=== PATIENT | female | born 1955 | race Caucasian/White ===

== ENCOUNTER 2017-06-17 13:24 | Outpatient (CLI) ==
[2015-05-10 19:52] VITALS: BMI 17.9
[2017-06-17 13:42] LABS: BASOPHILS % (AUTO) 0.3 % (0.0-3.0); EOSINOPHILS # (AUTO) 0.1 K/ul (0.0-0.7); EOSINOPHILS % (AUTO) 0.8 % (0.0-7.0); HEMATOCRIT 34.5 % (37.0-47.0); HEMOGLOBIN 11.5 g/dl (12.0-16.0); IMMATURE GRANULOCYTE % (AUTO) 0.3 % (0.0-5.0); LYMPHOCYTES # (AUTO) 1.7 K/uL (0.60-3.4); LYMPHOCYTES % (AUTO) 13.9 (10.0-50.0); MEAN CORPUSCULAR HEMOGLOBIN 29.9 pg (27.0-31.0); MEAN CORPUSCULAR HGB CONC 33.3 (31.8-35.4); MEAN CORPUSCULAR VOLUME 89.6 fl (81.0-99.0); MONOCYTES # (AUTO) 0.9 K/uL (0.4-2.0); MONOCYTES % (AUTO) 7.4 (0-10); NEUTROPHILS # (AUTO) 9.2 K/ul (2.0-6.9); NEUTROPHILS % (AUTO) 77.3; PLATELET COUNT 296 10^3/uL (140-440); RED BLOOD COUNT 3.85 10^6/ul (4.20-5.40); WHITE BLOOD COUNT 11.89 K/ul (4.6-10.2)
[2017-06-17 14:20] LABS: ALBUMIN 3.5 g/dL (3.4-5.0); ALBUMIN/GLOBULIN RATIO 0.88; ANION GAP 14.5; BILIRUBIN,TOTAL 0.48 mg/dL (0.00-1.20); BUN/CREATININE RATIO 27.65; CALCIUM 9.7 mg/dL (8.2-10.2); CHOL/HDL RATIO 4.9 (4.5-5.5); CREATININE 0.94 mg/dL (0.60-1.30); POTASSIUM 3.5 mmol/L (3.5-5.10); TOTAL PROTEIN 7.5 g/dL (5.8-8.1)
[2017-06-17 15:18] LABS: VALPORIC ACID (DEPAKENE) 14.78 ug/mL (50.00-100.00)
== END 2017-06-17 13:25 | disposition home or self-care (01) ==
LOC: LAB 13:24
PROVIDERS: ATTEND Physician Assistant
DX: G40.909 Epilepsy, unspecified, not intractable, without status epilepticus (principal); G47.00 Insomnia, unspecified; E78.5 Hyperlipidemia, unspecified
CPT/HCPCS: 36415; 80053; 80061; 80164; 84436; 84443; 85025

== ENCOUNTER 2017-06-17 14:04 | Emergency (ER) ==
[2017-06-17 14:10] VITALS: BP 128/78; TEMP 96.8; BMI 14.8
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
--- NOTE | 2017-06-17 16:01 | DI ---
EXAM: Chest two view, frontal and lateral views. HISTORY: Cough. COMPARISON: None available. FINDINGS: Right-sided chest port is present from a subclavian approach with tip projecting over the cavoatrial junction. Heart size is normal. There is fullness along the left aspect of the aortic ar ch. No vascular congestion identified. A few small nodular densities are suggested in the perihilar regions. No pleural effusion or pneumothorax identified. Question prominent left anterior first ri b and. No acute fractures seen. Clips seen in the upper abdomen. IMPRESSION: 1. Prominent opacity along the left side of the aortic arch could be prominence of the aorta. Lymph adenopathy or mass not excluded. 2. Perihilar nodules possibly calcified granulomas. 3. Correlation with chest CT or follow-up radiographs recommended.
[2017-06-17 16:42] LABS: BILIRUBIN,URINE Negative (NEGATIVE); KETONES,URINE Negative (NEGATIVE); LEUKOCYTE ESTERASE ,URINE Negative (NEGATIVE); NITRITE,URINE Negative (NEGATIVE); PH,URINE 6.5 (5-9); PROTEIN,URINE 1+ (NEGATIVE); URINE, BLOOD Trace-intact (NEGATIVE)
[2017-06-17 16:44] LABS: COCAIN SCREEN,URINE NEGATIVE (NEGATIVE)
[2017-06-17 16:45] LABS: ADD URINE MICROSCOPIC YES
[2017-06-17 16:48] LABS: BACTERIA,URINE TRACE (NOT PRESENT)
== END 2017-06-17 17:23 | disposition home or self-care (01) ==
LOC: ED 14:04
DX: J18.9 Pneumonia, unspecified organism (principal); F79 Unspecified intellectual disabilities; R41.82 Altered mental status, unspecified; Z79.899 Other long term (current) drug therapy; G40.909 Epilepsy, unspecified, not intractable, without status epilepticus; G47.00 Insomnia, unspecified; E78.5 Hyperlipidemia, unspecified
CPT/HCPCS: 36415; 80053; 80061; 80164; 80306; 81001; 84436; 84443; 85025; 99282

== ENCOUNTER 2017-07-14 11:21 | Outpatient (CLI) ==
--- NOTE | 2017-07-14 12:12 | CT ---
Exam: CT of the chest without intravenous contrast. Comparison: Chest x-ray performed 06/17/2017. Reason for exam: Lung nodules. FINDINGS: Right-sided Port-A-Cath is seen in the right hemithorax. No pneumothorax, pleural effusion , or focal consolidation. The heart is prominent in size. Image interpretation is limited by the lack of intravenous contrast administration and respiratory mo tion artifact. There are multiple sub centimeter ground-glass nodules seen in the right upper, right middle, right l ower, left upper and left lower lobes. There is a poorly marginated ground-glass opacity in the righ t lower lobe on axial image number 24 and 25 that measures approximately 1 cm that may be accentuated by motion artifact. Partially calcified nodule in the right lung base on axial image number 29. Gr ound-glass nodularity in the left lung base is seen on axial image number 34. Ground-glass nodularit y in the left upper lobe on axial image number 34. Right upper lobe, sub-centimeter nodularity on axi al image 17 and 18. The eight for a is normal in course and caliber. There is atherosclerotic disease within the aorta a nd distal arterial vasculature. The gallbladder has been removed. No suspicious appearing osteoblastic or osteolytic lesions with degenerative disease in the thoracic spine. Exuberant osteophyte formation in the sternoclavicular joints. Impression: 1. Multiple ground-glass nodules seen throughout the lung parenchyma measuring up to 1 cm. Recommend 6-8 week follow-up to document stability. 2. Cardiomegaly. 3. Degenerative disease.
== END 2017-07-14 11:22 | disposition home or self-care (01) ==
LOC: RAD 11:21
PROVIDERS: ATTEND Physician Assistant
DX: R91.8 Other nonspecific abnormal finding of lung field (principal)

== ENCOUNTER 2019-01-02 01:31 | Emergency (ER) | payer OTHER ==
[2019-01-02 02:01] VITALS: TEMP 98.3; BMI 14.5
[2019-01-02] MEDS ORDERED: URO-JET MUCOUSMEMB STA (02:14)
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
[2019-01-02 04:39] VITALS: BP 160/100
== END 2019-01-02 04:38 | disposition home or self-care (01) ==
LOC: ED 01:31
DX: J90 Pleural effusion, not elsewhere classified (principal); D64.9 Anemia, unspecified; R80.8 Other proteinuria; M25.511 Pain in right shoulder; T07.XXXA Unspecified multiple injuries, initial encounter
CPT/HCPCS: 36415; 80053; 81001; 82150; 83690; 85025; 93005; 93010; 99283